=== PATIENT | female | born 1975 | race Caucasian/White ===

== ENCOUNTER → 2023-12-27 | Outpatient (CLI) | payer OTHER | END | disposition still patient (30) | LOC: LABMN 10:58 | PROVIDERS: ATTEND Internal Medicine | DX: Z02.1 Encounter for pre-employment examination (principal) | CPT/HCPCS: 86706; 86735; 86762; 86765; 86787 ==

== ENCOUNTER 2025-02-26 20:49 | Emergency (ER) | payer OTHER ==
[~2025-02-26] VITALS: Ht 172.7 cm; Wt 79.5 kg
[2025-02-26 20:58] VITALS: TEMP 98
[2025-02-26] MEDS: KETOROLAC TROMETHAMINE 30 MG/ML VIAL IM ONE (23:07)
[2025-02-26] MEDS: METHOCARBAMOL 500 MG TABLET PO ONE (23:07)
[2025-02-26] MEDS: ACETAMINOPHEN 500 MG TABLET PO ONE (23:07)
[2025-02-27] MEDS ORDERED: METH-812 PO (00:53)
[2025-02-27 03:13] VITALS: BP 114/67; PULSE 62; RESP 18; O2SAT 99
== END 2025-02-27 03:15 | disposition home or self-care (01) ==
LOC: EMS 20:49
DX: S46.811A Strain of other muscles, fascia and tendons at shoulder and upper arm level, right arm, initial encounter (principal); X50.0XXA Overexertion from strenuous movement or load, initial encounter; Y93.89 Activity, other specified; Y92.89 Other specified places as the place of occurrence of the external cause; Y99.0 Civilian activity done for income or pay
CPT/HCPCS: 99283; 96372; J1885